=== PATIENT | female | born 1970 | race Caucasian/White ===

== ENCOUNTER 2017-02-09 18:24 | Emergency (ER) | payer MEDICARE, OTHER ==
[~2017-02-09] VITALS: Ht 154.9 cm; Wt 68.0 kg
[~2017-02-09 18:24] MED LIST: [UNRECOGNIZED DRUG - CODE] PO
[2017-02-09] MEDS ORDERED: MECLIZINE HCL 25 MG TABLET PO ONE (19:00)
[2017-02-09] MEDS ORDERED: DIAZEPAM 5 MG TABLET PO ONE (20:45)
[2017-02-09 22:25] VITALS: BP 109/60
== END 2017-02-09 22:30 | disposition home or self-care (01) ==
LOC: EMS 18:28 → EDBD 18:28 → EMS 22:30
DX: R42 Dizziness and giddiness (principal); Z87.891 Personal history of nicotine dependence
CPT/HCPCS: 99283

== ENCOUNTER 2017-05-01 01:50 | Emergency (ER) | payer MEDICARE, OTHER ==
[~2017-05-01] VITALS: Ht 154.9 cm; Wt 68.2 kg
[2017-05-01] MEDS ORDERED: ACETAMINOPHEN 325 MG TABLET PO ONE (02:15)
[2017-05-01] MEDS ORDERED: MECLIZINE HCL 25 MG TABLET PO ONE (02:15)
[2017-05-01] MEDS ORDERED: HYDROCODONE/ACETAMINOPHEN 5-325 MG TABLET PO ONE (02:15)
[2017-05-01 03:12] VITALS: BP 104/60
== END 2017-05-01 03:14 | disposition home or self-care (01) ==
LOC: EMS 01:51
DX: S13.9XXA Sprain of joints and ligaments of unspecified parts of neck, initial encounter (principal); S33.5XXA Sprain of ligaments of lumbar spine, initial encounter; Z90.89 Acquired absence of other organs; W01.198A Fall on same level from slipping, tripping and stumbling with subsequent striking against other object, initial encounter; Y93.89 Activity, other specified; Y92.89 Other specified places as the place of occurrence of the external cause; Y99.9 Unspecified external cause status
CPT/HCPCS: 99284